=== PATIENT | female | born 1975 | race Two or more races ===

== ENCOUNTER 2023-03-31 22:02 | Emergency (ER) | payer MEDICAID, OTHER ==
[~2023-03-31] VITALS: Ht 149.9 cm; Wt 71.0 kg
[2023-03-31 22:29] VITALS: BP 164/80; PULSE 69; RESP 16; TEMP 98.4
[2023-04-01 00:05] VITALS: O2SAT 96
== END 2023-04-01 00:57 | disposition home or self-care (01) ==
LOC: ER 22:02
DX: S52.501A Unspecified fracture of the lower end of right radius, initial encounter for closed fracture (principal); X58.XXXA Exposure to other specified factors, initial encounter; Y93.72 Activity, wrestling; Y92.89 Other specified places as the place of occurrence of the external cause; Y99.8 Other external cause status
CPT/HCPCS: 29125; 73090